=== PATIENT | female | born 1955 | race Caucasian/White ===

== ENCOUNTER 2017-04-28 09:35 | Day surgery (SDC) | payer OTHER ==
[2017-04-28] MEDS ORDERED: DIPRIVAN 200 MG/20 ML IV ONE (09:36)
[2017-04-28] MEDS ORDERED: Lactated Ringers 1,000 ML IV ONE ×2 (10:25→13:06)
[2017-04-28] MEDS ORDERED: Lactated Ringers 1,000 ML IV SCH (10:30)
--- NOTE | 2017-04-28 12:02 | HP ---
DATE OF SURGERY: 04/28/2017 HISTORY OF PRESENT ILLNESS: The patient is a 61 year-old with occasional rectal bleeding, bowel movements okay, occasional low abdominal aches and pains. She had a high risk lesion with inflammatory polyp that was removed with a snare and multiple polyps. Given her recent recurrent rectal bleeding I felt she is high risk patient in need of short-term follow up colonoscopy. PAST MEDICAL HISTORY: Depression, hypothyroidism. PAST SURGICAL HISTORY: Cholecystectomy, hysterectomy, colonoscopy in the past. She had multiple polyps in the past. MEDICATIONS: Xanax, multivitamins, baby aspirin, Flomax, Flonase, Zicam as well as thyroid medication. ALLERGIES: CODEINE. FAMILY HISTORY: Heart disease, cancer, diabetes. Negative for colon cancer. SOCIAL HISTORY: Quarter pack per day smoker, denies alcohol abuse. REVIEW OF SYSTEMS: Twelve systems reviewed per admission assessment. No chest pain or palpitations other systems negative or noncontributory as above and per preadmission questionnaire. PHYSICAL EXAMINATION: GENERAL: No acute distress. HEENT: Sclerae nonicteric. NECK: No JVD. CHEST: Equal excursion, nonlabored breathing. CVS: Regular rate and rhythm. ABDOMEN: Soft. No peritoneal signs. EXTREMITIES: No significant edema. NEURO: Alert, moving extremities symmetrically. No gross motor deficits noted. RECTAL: Deferred timed to endoscopy exam. IMPRESSION: Occasional rectal bleeding, history of multiple polyps as well as high risk of tubular adenoma, risk of inflammatory lesion. I feel she is a high risk patient and needs short term follow up colonoscopy. Risks and benefits explained in detail including but not limited to bleeding or infection, risk of bowel injury or perforation possibly requiring open procedure, ongoing morbidity, small risk of missed or nondiagnosis or incomplete exam possibly requiring barium enema, other studies or procedures, general risk of sedation, risk of bowel prep, postoperative risk of nausea or cramping but not limited to. She understands. She had rectal bleeding. She had a prior poor colon prep. History of multiple polyps as well as high risk of inflammatory lesion. She is given short term follow up colonoscopy. I feel she is a candidate, will proceed with colonoscopy as an outpatient under MAC anesthesia.
[2017-04-28 12:46] VITALS: O2SAT 95
[2017-04-28 13:14] VITALS: BP 121/87; PULSE 72
--- NOTE | 2017-04-29 10:22 | OP ---
SURGERY DATE/TIME: 04/28/2017 1119 PREOPERATIVE DIAGNOSES: 1) History of polyps. 2) History of rectal bleeding. POSTOPERATIVE DIAGNOSES: 1) Polypoid lesion at old biopsy tattoo site prior procedure. 2) Small raised lesion versus hyperplastic polyps versus early true polyp transverse colon, sigmoid colon, rectosigmoid colon and rectum. 3) Poor right colon prep. 4) Diverticulosis. 5) Small internal and external hemorrhoids. PROCEDURES: 1) Colonoscopy to cecum with hot biopsy small raised lesion versus hyperplastic lesion transverse colon x2. 2) Hot snare removal of polypoid lesion at old tattoo biopsy site sigmoid colon removed with hot snare. 3) Hot snare removal multiple sigmoid and rectosigmoid rectal small polyps versus hyperplastic lesions. SURGEON: Dr. Juma Fournier. ANESTHESIA: MAC. ESTIMATED BLOOD LOSS: Minimal. INDICATIONS: As noted above. Risks and benefits explained in detail but not limited to and consent obtained. DESCRIPTION OF PROCEDURE AND FINDINGS: The patient is taken to the operating room. MAC anesthesia introduced. After official time out and no disagreement with planned procedure, digital rectal exam did not reveal any rectal masses. She did have some small internal and external hemorrhoids. Video colonoscope inserted and passed up the somewhat tortuous sigmoid, descending colon past the tattoo biopsy site. There was a polypoid projection at this site. This had been inflammatory polyp in the past. It was felt this area would benefit from removal with the snare. The scope was able to be passed around the transverse colon with external pressure and positioning on her back. The scope was able to be passed down the cecum, appendiceal orifice and valve were well visualized. On withdrawal of the scope no signs of any large polyps, masses or obstructing lesions in the right colon. Her prep in the right colon was poor. She had areas of liquidy semi-solid and some solid stool limiting the exam. The scope was slowly and carefully withdrawn. There was some small vague raised lesions versus hyperplastic lesions in the transverse colon removed with hot biopsy forceps x2. The scope was then pulled back down in the descending colon to this polypoid projection. In the sigmoid colon this was able to be, at the old tattoo biopsy site, this was able to be snared, appeared to be removed in toto with brief bursts of cautery and hot snare. The old tattoo could be seen in the base of the wound. Appeared to have adequate hemostasis. The scope pulled back. Again the sigmoid, rectosigmoid and rectum, there were some multiple small very smooth benign appearing hyperplastic polypoid projection this was removed with hot biopsy forceps and brief bursts of cautery. Good hemostasis noted. Otherwise she had some internal and external hemorrhoids. She had some diverticulosis. There were no signs of any obstructing masses other than the polypoid projection at the prior tattoo site from prior exam. No signs of any obstructing lesions. The scope is withdrawn. The patient tolerated the procedure well. There were no immediate complications. Findings discussed with the family out in the waiting area.
== END 2017-04-28 13:15 | disposition home or self-care (01) ==
LOC: SDC 09:35
PROVIDERS: ATTEND Surgery
PROC: 0DBH8ZX Excision of Cecum, Via Natural or Artificial Opening Endoscopic, Diagnostic (ICD-10-PCS; principal; 2017-04-28)
PROC: 0DBP8ZX Excision of Rectum, Via Natural or Artificial Opening Endoscopic, Diagnostic (ICD-10-PCS; 2017-04-28)
PROC: 0DBN8ZX Excision of Sigmoid Colon, Via Natural or Artificial Opening Endoscopic, Diagnostic (ICD-10-PCS; 2017-04-28)
DX: K63.9 Disease of intestine, unspecified (principal); K63.5 Polyp of colon; K62.1 Rectal polyp; K57.90 Diverticulosis of intestine, part unspecified, without perforation or abscess without bleeding; K64.4 Residual hemorrhoidal skin tags; K64.8 Other hemorrhoids
CPT/HCPCS: 00810; J2704